=== PATIENT | female | born 1980 | race African-American/Black ===

== ENCOUNTER 2019-11-26 13:55 | Emergency (ER) | payer BC, OTHER ==
--- NOTE | 2019-11-26 14:16 | PDOC ---
Rapid Medical Evaluation Chief Complaint: Urinary Problem Time Seen by Provider: 11/26/19 14:13 Medical Evaluation: 11/26/19 14:13 I have performed a brief in-person evaluation of this patient. The patient presents with a chief complaint of: h/o diabetes present with complains of 3 days h/o fever, urinary frequency, urinary incontinence, intermittent cough, [place] and intermittent diarrhea. report taking motrin for fever yesterday but nothing today. Denies SOB Pertinent physical exam findings: febril 102.7F, lungs CTAB, heart RRR in NAD. neg CVAT b/l I have ordered the following: urosepsis labs, Tylenol The patient will proceed to the ED for further evaluation. Discharge Disposition - Diagnosis Urinary frequency, Fever and chills - Discharge Dispostion Condition at time of disposition: Stable - Referrals - Patient Instructions - Post Discharge Activity
[2019-11-26] MEDS ORDERED: SODIUM CHLORIDE 1,000 ML IV STA (14:22)
[2019-11-26] MEDS ORDERED: ACETAMINOPHEN 1000 MG/100 ML VIAL (NON FORMULARY) IVPB ONE (14:22)
[2019-11-26 14:30] VITALS: BMI 28.8
--- NOTE | 2019-11-26 16:03 | PDOC ---
Attending Attestation - Resident Resident Name: Sahara Rodríguez - ED Attending Attestation I have performed the following: I have examined & evaluated the patient, The case was reviewed & discussed with the resident, I agree w/resident's findings & plan - HPI HPI: 11/26/19 15:57 Healthy 39-year-old female presents with fever/chills for 2 days. Patient was in her usual state of good health, works as a dedicated intermodal truck driver, and awoke 2 days ago with chills and urinary urgency. Since then, has reported some persistent urinary urgency, generalized weakness, and intermittent fevers and chills. Also reports intermittent headache which is frontal, positional, and typically associated with a fever spike. No history of recurring headaches or recurring infections, including UTI. No other localizing infectious complaints, no recent travel. She was at a social gathering over the weekend, states she was socially distancing. No known COVID exposure. - Physicial Exam PE: 11/26/19 16:01 Febrile, tachycardic, hemodynamically stable otherwise with normal O2 sat Well-appearing lying comfortably in stretcher No sinus tenderness, neck supple, pupils equal round reactive to light, extraocular movements are intact Oropharynx clear Heart is regular slight tachycardia, lungs are clear Abdomen benign with slight suprapubic discomfort to palpation, no CVA tenderness No rash No extremity swelling or cellulitis Neurologically intact - Critical Care Time Total Critical Care Time: 30 Critical Care Statement: The care of this patient involved high complexity decision making to prevent further life threatening deterioration of the patient's condition and/or to evaluate & treat vital organ system(s) failure or risk of failure. - Medical Decision Making 11/26/19 16:02 39-year-old female previously healthy presents with fever, generalized weakness, urinary complaints and headache. Meets criteria for Sirs/sepsis based on fever and tachycardia, source includes urine as most likely given the associated symptoms, headache could be suggestive for meningitis in the absence of other localizing source. Viral etiology with fever also on the differential. Sepsis protocol initiated IV fluids, antipyretics UA, chest x-ray If no localizing infection on initial work-up, will need LP to rule out meningitis COVID swab sent but will be pending Close monitoring, likely admission Heart Score/ECG Review #1 ECG reviewed & interpreted by me at: 15:31 General ECG Interpretation: Sinus Rhythm (with PVC noted), Normal Rate (110), Normal Intervals (qtc 430, IRBBB), No acute ischemic changes Discharge - Discharge Information Problems reviewed: Yes Clinical Impression/Diagnosis: Urinary frequency, Fever and chills Condition: Stable - Follow up/Referral - Patient Discharge Instructions - Post Discharge Activity
[2019-11-26 16:30] LABS: BASO % 0.3 % (0-2.0); HEMATOCRIT 39.9 % (32.4-45.2); HEMOGLOBIN 13.4 GM/dL (10.7-15.3); LYMPH % 10.5 % (8-40); MCHC 33.7 g/dl (32.0-36.0); MEAN CELL VOLUME 94.9 fl (80-96); MEAN PLT VOLUME 7.8 fl (7.5-11.1); MONO % 5.9 % (3.8-10.2); NEUT % 83.3 % (42.8-82.8); PLATELET COUNT 377 K/MM3 (134-434); RDW 14.6 % (11.6-15.6); WHITE BLOOD COUNT 15.2 K/mm3 (4.0-10.0)
[2019-11-26 16:37] LABS: INR 1.4 (0.83-1.09); PROTHROMBIN TIME (PATIENT) 16.6 SEC (9.7-13.0)
[2019-11-26 16:40] LABS: ACTIVATED PTT 32.2 SECONDS (25.2-36.5)
[2019-11-26 16:55] LABS: ALBUMIN 3.2 g/dl (3.4-5.0); BILIRUBIN,TOTAL 0.8 mg/dL (0.2-1); BLOOD UREA NITROGEN 8.3 mg/dL (7-18); CALCIUM 8.6 mg/dL (8.5-10.1); CREATININE 1.1 mg/dL (0.55-1.3); TOT PROT 7.1 g/dl (6.4-8.2)
--- NOTE | 2019-11-26 17:36 | PDOC ---
History of Present Illness - General Chief Complaint: Urinary Problem Stated Complaint: COUGH/ FEVER Time Seen by Provider: 11/26/19 14:13 History Source: Patient Exam Limitations: No Limitations - History of Present Illness Initial Comments: 11/26/19 17:37 HPI: This is a 39 y/o female with a PMH of pre-diabetes presenting to the ED because of 3 days of fever/chills, increased urinary frequency, headache and generalized malaise. She states that she was sleeping all day on Monday, and that she had increased urinary frequency but denied dysuria, blood in urine, or incomplete emptying. She also endorsed one episode of incontinence as she stood up. She also endorses a frontal headache that is brought on by sudden head movements and staring at light. She does not normally have headaches. She reports that the first day she experienced a few episodes of diarrhea, however they have subsided. She denies chest pain, SOB, abdominal pain, N/V, neck pain, or focal weakness. ROS: GENERAL/CONSTITUTIONAL: Yes fever/chills. Yes weakness. HEAD, EYES, EARS, NOSE AND THROAT: No change in vision. No ear pain or discharge. No sore throat. CARDIOVASCULAR: No chest pain or shortness of breath. RESPIRATORY: Yes cough., No wheezing, or hemoptysis. GASTROINTESTINAL: No nausea, vomiting. Yes diarrhea which has resolved. GENITOURINARY: No dysuria. Yes increased frequency and color change. MUSCULOSKELETAL: No joint or muscle swelling or pain. No neck or back pain. NEUROLOGIC: Yes headache. No vertigo, loss of consciousness, or change in strength/sensation. HEMATOLOGIC/LYMPHATIC: No anemia, easy bleeding, or history of blood clots. ALLERGIC/IMMUNOLOGIC: No hives or skin allergy. PMH: Pre-diabetes PSx: Denied Social Hx: Etoh, tobacco Meds: Denied Allergies: Penicillins PE: GENERAL: Awake, alert, and fully oriented, in no acute distress. Patient is non- toxic appearing. She is laying in bed conversational. HEAD: No signs of trauma EYES: PERRLA, EOMI ENT: Oropharynx clear without exudates. Moist mucosa NECK: Normal ROM, supple, no lymphadenopathy, JVD, or masses LUNGS: Breath sounds equal, clear to auscultation bilaterally. Mild bilateral expiratory wheezing HEART: Tachycardic, normal S1 and S2, no murmurs, rubs or gallops ABDOMEN: Mild RUQ tenderness EXTREMITIES: Normal range of motion, no edema. N NEUROLOGICAL: Cranial nerves II through XII grossly intact. Normal speech, normal gait. No nuchal rigidity. SKIN: Warm, Dry, normal turgor, no rashes or lesions noted. MDM: 11/26/19 18:36 This is a 39 y/o female with a PMH of pre-diabetes presenting to the ED because of 3 days of fever/chills, increased urinary frequency, headache and generalized malaise. - Febrile 102.9 in ED, tachycardic at 101 - Suspected UTI due to increased frequency - Acetaminophen for fever - CBC, CMP, UA, EKG, CXR, blood cultures CXR: Impression: Linear platelike atelectasis versus scarring in the right lung base. The rest of the lung is clear Significant lab results: - WBC 15.2K - UA with blood, trace leukocyte esterase. Patient is on her period. - AST 38, Alk Phos 121 - Will order abdominal US due to increased liver enzymes and mild tenderness to palpation in RUQ 11/26/19 19:47 - Patient remains febrile at 102.7 - Now with some bilateral wheezing and decreased lung sounds - Will give 600mg Motrin 11/26/19 21:49 US: IMPRESSION: Hepatomegaly with a slightly coarse echotexture. Please correlate with liver enzymes. No gallstones are identified. - Now febrile at 103.7 - Will order inflammatory markers for possible COVID. If inflammatory markers are elevated, will CT chest. If not elevated will broaden to search for source of infection. 11/26/19 23:30: - Signed out to Dr. Bee Past History - Medical History Allergies/Adverse Reactions: Allergies Allergy/AdvReac Type Severity Reaction Status Date / Time naproxen Allergy Verified 11/26/19 15:31 Penicillins Allergy Verified 11/26/19 15:31 Home Medications: Ambulatory Orders levoFLOXacin [Levaquin] 750 mg PO DAILY #5 tab 11/27/19 COPD: No Diabetes: Yes - Surgical History Abdominal Surgery: Yes - Reproductive History Is Patient Now?: No - Immunization History Immunization Up to Date: Yes - Psycho-Social/Smoking History Smoking History: Current every day smoker Information on smoking cessation initiated: No - Substance Abuse Hx (Audit-C & DAST Scrn) How often the patient has a drink containing alcohol: Never Score: In Men: 4 or > Positive; In Women: 3 or > Positive: 0 Screen Result (Pos requires Nsg. Audit-10AR): Negative In the last yr the pt used illegal drug/Rx for NonMed reason: No Score: Yes response is considered Positive: 0 Screen Result (Positive result requires Nsg. DAST-10): Negative *Physical Exam - Vital Signs Last Vital Signs Temp Pulse Resp BP Pulse Ox 102.9 F H 121 H 20 118/76 100 11/26/19 14:15 11/26/19 14:15 11/26/19 14:15 11/26/19 14:15 11/26/19 14:15 Heart Score/ECG Review - ECG Intrepretation Comment:: 11/26/19 23:[address] elevations or T wave inversions Sinus tachy with premature ventricular complexes Possible left atrial enlargement Incomplete RBBB Vent rate 110bpm LA interval 146ms QRS duration 92ms QT/QTc 318/430ms ED Treatment Course - LABORATORY CBC & Chemistry Diagram: 11/26/19 15:36 11/26/19 15:36 - ADDITIONAL ORDERS Additional order review: Laboratory Results 11/26/19 11/26/19 11/26/19 15:36 15:36 15:36 PT with INR 16.60 H INR 1.40 H PTT (Actin FS) 32.2 Sodium 133 L Potassium 4.0 Chloride 102 Carbon Dioxide 21 Anion Gap 10 BUN 8.3 Creatinine 1.1 Est GFR (CKD-EPI)AfAm 72.73 Est GFR (CKD-EPI)NonAf 62.75 Random Glucose 110 H Lactic Acid Calcium 8.6 Total Bilirubin 0.8 AST 38 H ALT 47 Alkaline Phosphatase 121 H Total Protein 7.1 Albumin 3.2 L Serum , Qual Negative 11/26/19 15:36 PT with INR INR PTT (Actin FS) Sodium Potassium Chloride Carbon Dioxide Anion Gap BUN Creatinine Est GFR (CKD-EPI)AfAm Est GFR (CKD-EPI)NonAf Random Glucose Lactic Acid 1.0 Calcium Total Bilirubin AST ALT Alkaline Phosphatase Total Protein Albumin Serum , Qual 11/26/19 15:36 RBC 4.20 MCV 94.9 MCHC 33.7 RDW 14.6 MPV 7.8 Neutrophils % 83.3 H Lymphocytes % 10.5 Monocytes % 5.9 Eosinophils % 0.0 Basophils % 0.3 - Medications Given in the ED: ED Medications Discontinued Medications Generic Name Dose Route Start Last Admin Trade Name Tad PRN Reason Stop Dose Admin Sodium Chloride 1,000 mls @ 1,000 mls/hr 11/26/19 14:22 11/26/19 15:58 Normal Saline - IV 11/26/19 15:21 1,000 mls/hr ASDIR STA Administration Discharge - Discharge Information Problems reviewed: Yes Clinical Impression/Diagnosis: Urinary frequency, Fever and chills, Pneumonia Condition: Stable Disposition: HOME - Admission Yes - Additional Discharge Information Prescriptions: levoFLOXacin [Levaquin] 750 mg PO DAILY #5 tab - Follow up/Referral - Patient Discharge Instructions Patient Printed Discharge Instructions: DI for Pneumonia -- Adult Additional Instructions: Antibiotics were sent to your pharmacy. Please pick these up and take them daily for 5 days as directed. Return to the ED for any new or concerning symptoms. - Post Discharge Activity Work/Back to School Note: Back to Work
[2019-11-26 19:07] LABS: PH,URINE 5.5 (5.0-8.0); URINE APPEARANCE Clear; URINE BILIRUBIN 1+ (NEGATIVE); URINE COLOR Yellow; URINE GLUCOSE (UA) Negative (NEGATIVE); URINE KETONE 2+ (NEGATIVE); URINE LEUK ESTERASE Trace (NEGATIVE); URINE NITRITE Negative (NEGATIVE); URINE PROTEIN 2+ (NEGATIVE)
[2019-11-26] MEDS ORDERED: SODIUM CHLORIDE 0.9% 500 ML INFUS.BAG IV ONE (19:46)
[2019-11-26] MEDS ORDERED: IBUPROFEN 600 MG TABLET (FP) PO ONE ×3 (21:25→22:16)
--- NOTE | 2019-11-26 23:24 | PDOC ---
*Physical Exam - Vital Signs Last Vital Signs Temp Pulse Resp BP Pulse Ox 103.7 F H 109 H 18 118/75 100 11/26/19 21:54 11/26/19 21:54 11/26/19 21:54 11/26/19 21:54 11/26/19 21:54 ED Treatment Course - LABORATORY CBC & Chemistry Diagram: 11/26/19 15:36 11/26/19 15:36 - ADDITIONAL ORDERS Additional order review: Laboratory Results 11/26/19 11/26/19 11/26/19 17:00 15:36 15:36 PT with INR 16.60 H INR 1.40 H PTT (Actin FS) 32.2 Sodium 133 L Potassium 4.0 Chloride 102 Carbon Dioxide 21 Anion Gap 10 BUN 8.3 Creatinine 1.1 Est GFR (CKD-EPI)AfAm 72.73 Est GFR (CKD-EPI)NonAf 62.75 Random Glucose 110 H Lactic Acid Calcium 8.6 Total Bilirubin 0.8 AST 38 H ALT 47 Alkaline Phosphatase 121 H Total Protein 7.1 Albumin 3.2 L Serum , Qual Urine Color Yellow Urine Appearance Clear Urine pH 5.5 Ur Specific Dowell 1.025 Urine Protein 2+ H Urine Glucose (UA) Negative Urine Ketones 2+ H Urine Blood 3+ H Urine Nitrite Negative Urine Bilirubin 1+ H Urine Urobilinogen 2.0 H Ur Leukocyte Esterase Trace U Pathogenic Cast Auto None 11/26/19 11/26/19 15:36 15:36 PT with INR INR PTT (Actin FS) Sodium Potassium Chloride Carbon Dioxide Anion Gap BUN Creatinine Est GFR (CKD-EPI)AfAm Est GFR (CKD-EPI)NonAf Random Glucose Lactic Acid 1.0 Calcium Total Bilirubin AST ALT Alkaline Phosphatase Total Protein Albumin Serum , Qual Negative Urine Color Urine Appearance Urine pH Ur Specific Dowell Urine Protein Urine Glucose (UA) Urine Ketones Urine Blood Urine Nitrite Urine Bilirubin Urine Urobilinogen Ur Leukocyte Esterase U Pathogenic Cast Auto 11/26/19 15:36 RBC 4.20 MCV 94.9 MCHC 33.7 RDW 14.6 MPV 7.8 Neutrophils % 83.3 H Lymphocytes % 10.5 Monocytes % 5.9 Eosinophils % 0.0 Basophils % 0.3 - Medications Given in the ED: ED Medications Discontinued Medications Generic Name Dose Route Start Last Admin Trade Name Freq PRN Reason Stop Dose Admin Acetaminophen 1,000 mg 11/26/19 14:22 11/26/19 17:41 Ofirmev Injection - IVPB 11/26/19 14:23 1,000 mg ONCE ONE Administration Sodium Chloride 1,000 mls @ 1,000 mls/hr 11/26/19 14:22 11/26/19 15:58 Normal Saline - IV 11/26/19 15:21 1,000 mls/hr ASDIR STA Administration Ibuprofen 600 mg 11/26/19 21:25 11/26/19 21:54 Motrin - PO 11/26/19 21:26 600 mg ONCE ONE Administration Sodium Chloride 1,000 ml 11/26/19 19:46 11/26/19 21:54 Normal Saline - IV 11/26/19 19:47 1,000 ml ONCE ONE Administration Medical Decision Making - Medical Decision Making 11/26/19 23:11 In short 39yo F no pmh presenting with fevers, chills, malaise for 3 days. + Urinary frequency, dark color. + productive cough (yellow). Headaches with photophobia RUQ tenderness on exam UA wnl RUQ US wnl COVID? F/u inflammatory markers Fever despite Tylenol and Motrin CT dry if elevated inflammatory markers vs CTA if dimer is elevated 11/27/19 04:45 CT chest demonstrating LLL pneumonia Patient written for Levaquin 750mg for 5 days for CAP Dispo: Home Discharge - Discharge Information Problems reviewed: Yes Clinical Impression/Diagnosis: Urinary frequency, Fever and chills Pneumonia Qualifiers: Pneumonia type: due to unspecified organism Laterality: left Lung location: lower lobe of lung Qualified Code(s): J18.9 - Pneumonia, unspecified organism Condition: Stable Disposition: HOME - Admission No - Additional Discharge Information Prescriptions: levoFLOXacin [Levaquin] 750 mg PO DAILY #5 tab - Follow up/Referral - Patient Discharge Instructions Patient Printed Discharge Instructions: DI for Pneumonia -- Adult Additional Instructions: Antibiotics were sent to your pharmacy. Please pick these up and take them daily for 5 days as directed. Return to the ED for any new or concerning symptoms. - Post Discharge Activity Work/Back to School Note: Back to Work
[2019-11-26] MEDS ORDERED: PIPERACILLIN/TAZOB 4.5 GM 4.5 GM in DEXTROSE 5%-WATER 100 ML IVPB ONE (23:25)
[2019-11-26] MEDS ORDERED: VANCOMYCIN 1 GM in D5W (PRE-DOCKED) 1,000 MG/250 ML IVPB ONE (23:25)
[2019-11-27] MEDS ORDERED: VANCOMYCIN 1 GRAM (PRE-DOCKED) 1,000 MG/250 ML BAG IVPB ONE (02:07)
[2019-11-27] MEDS ORDERED: PIPERACILLIN/TAZOB 3.375 GM 3.375 GM/50 ML BAG IVPB ONE (02:07)
[2019-11-27 03:09] VITALS: BP 101/65
[2019-11-27] MEDS ORDERED: ACETAMINOPHEN 500 MG TABLET (FP) PO ONE (05:29)
[2019-11-27] MEDS ORDERED: ACETAMINOPHEN 325 MG TABLET (FP) ONE (05:51)
[2019-11-27 06:44] VITALS: PULSE 87; TEMP 101.6
--- NOTE | 2019-11-27 13:30 | EKG ---
Test Reason : Blood Pressure : / mmHG Vent. Rate : 110 BPM Atrial Rate : 110 BPM P-R Int : 146 ms QRS Dur : 092 ms QT Int : 318 ms P-R-T Axes : 054 041 024 degrees QTc Int : 430 ms SINUS TACHYCARDIA WITH FREQUENT PREMATURE VENTRICULAR COMPLEXES POSSIBLE LEFT ATRIAL ENLARGEMENT INCOMPLETE RIGHT BUNDLE BRANCH BLOCK BORDERLINE ECG Confirmed by MD JUNO, LISA ([id number]) on 11/27/2019 1:29:26 PM Referred By: Confirmed By:LISA FRAIRE MD
== END 2019-11-27 06:58 | disposition home or self-care (01) ==
LOC: JER 13:55
PROC: 3E03329 Introduction of Other Anti-infective into Peripheral Vein, Percutaneous Approach (ICD-10-PCS; principal; 2019-11-26)
PROC: 3E033GC Introduction of Other Therapeutic Substance into Peripheral Vein, Percutaneous Approach (ICD-10-PCS; 2019-11-26)
PROC: 3E0337Z Introduction of Electrolytic and Water Balance Substance into Peripheral Vein, Percutaneous Approach (ICD-10-PCS; 2019-11-26)
DX: R50.9 Fever, unspecified (principal); J18.9 Pneumonia, unspecified organism; R35.0 Frequency of micturition
CPT/HCPCS: 36415; 71045-TC-FY; 71275-TC; 76705-TC; 80053; 81003; 82728; 83605; 84703; 85025; 85379; 85610; 85730; 86140; 87040; 87086; 93005; 93010; 99285-25; J0131; U0003